=== PATIENT | male | born 1990 | race Caucasian/White ===

== ENCOUNTER 2018-12-10 05:00 | Emergency (ER) | payer BC ==
[2018-12-10 05:42] LABS: #Basophils 0.1 thou/uL (0.0-0.2); #Eosinphils 0.1 thou/uL (0.0-0.7); #Lymphocytes 2.4 thou/uL (1.20-3.40); #Monocytes 0.5 thou/uL (0.11-0.59); %Basophils 1.2 % (0.0-1.0); %Lymphocytes 30.2 % (21.0-51.0); %Monocytes 5.7 % (0.0-10.0); Hemoglobin 14.8 g/dL (14.0-18.0); Mean Corpuscular HGB CONC 33.4 g/dL (32.0-36.0); Mean Corpuscular Hemoglobin 31.6 pg (27.0-31.0); Mean Corpuscular Volume 94.7 fL (78.0-98.0); Mean Platelet Volume 6.8 fL (7.4-10.4); Platelet Count 189 thou/uL (130-400); RBC Distribution Width 11.4 % (11.5-14.5); Red Blood Cell (RBC) Count 4.68 mill/uL (4.70-6.10)
[2018-12-10] MEDS ORDERED: Morphine 4 MG/ML VIAL ONE (05:48)
[2018-12-10] MEDS ORDERED: Ketorolac Tromethamine 30 MG/ML VIAL ONE (05:48)
[2018-12-10] MEDS ORDERED: Ondansetron PF 4 MG/2 ML Vial ONE (05:48)
[2018-12-10 06:03] LABS: ALT (SGPT) 46 U/L (8-55); AST (SGOT) 36 U/L (5-34); Albumin 4.5 g/dL (3.5-5.0); Alkaline Phosphatase 56 U/L (40-150); Anion Gap 16 mmol/L (10-20); BUN (Urea Nitrogen) 15 mg/dL (8.9-20.6); Bilirubin, Total 0.8 mg/dL (0.2-1.2); Calc. Creatinine Clearance 0 mL/min (70-130); Calcium 9.5 mg/dL (7.8-10.44); Carbon Dioxide 25 mmol/L (22-29); Chloride 104 mmol/L (98-107); Estimated GFR-MDRD 78; Globulin 2.8 g/dL (2.4-3.5); Glucose 143 mg/dL (70-105); Potassium 3.5 mmol/L (3.5-5.1); Protein, Total 7.3 g/dL (6.0-8.3); Sodium 141 mmol/L (136-145)
[2018-12-10 06:58] LABS: Bilirubin Negative (Negative); Blood, Urine 3+ (Negative); Calcium Oxalate Crystals Rare HPF (None Seen); Clarity Clear (Clear); Glucose, Urine (Dipstick) Normal (Negative); Leukocyte Negative Leu/uL (Negative); Mucous/LPF 1+ LPF (<2+); Nitrite Negative (Negative); Protein, Urine (Dipstick) 30 mg/dL (Neg-Trace); Squamous Epithelial 0-3 HPF (0-3); Urobilinogen Normal mg/dL (Less than 2)
[2018-12-10 07:08] LABS: Bacteria/HPF 1+ HPF (None Seen)
[2018-12-10 07:09] LABS: Yeast-Budding None Seen HPF (None Seen)
--- NOTE | 2018-12-10 07:18 | CT ---
CT ABDOMEN AND PELVIS WITHOUT CONTRAST: Date: 12/10/18 INDICATION: Lower abdominal pain, right-sided flank pain. FINDINGS: There is mild left hydronephrosis. There is a 1.7 mm stone at the left UVJ. There is a 1.3 mm stone w ithin the inferior pole of the left kidney. No right-sided renal or ureteral calculus is evident. There are gallstones within the gallbladder. The unopacified liver, pancreas, adrenal glands, and spleen appear within normal limits. Lung bases are clear. Unopacified large and small bowel are unremarkable appearing. Rectum and perirectal soft tissues are unremarkable appearing. No acute osseous abnormality is evident. IMPRESSION: 1. 1.7 mm left UVJ calculus with mild left hydronephrosis. 2. Left nephrolithiasis. 3. Cholelithiasis. POS: BH
[2018-12-10] MEDS ORDERED: Acetaminophen 500 MG TAB ONE (07:34)
== END 2018-12-10 07:57 | disposition home or self-care (01) ==
LOC: ERS 05:00
DX: N13.2 Hydronephrosis with renal and ureteral calculous obstruction (principal); F41.9 Anxiety disorder, unspecified; F32.9 Major depressive disorder, single episode, unspecified; R11.2 Nausea with vomiting, unspecified
CPT/HCPCS: 74176; 80053; 81003; 81015; 85025; 96374; 96375; J1885; J2270; J2405